=== PATIENT | female | born 1930 | race Caucasian/White ===

== ENCOUNTER 2017-05-12 19:45 | Inpatient (IN) | payer MEDICARE, BC ==
[~2017-05-12] VITALS: Ht 167.6 cm; Wt 69.5 kg
[~2017-05-12 19:45] MED LIST: ALTACE5 MG OR; ARIMIDEX1 MG OR; FOSAMAX10 MG OR; HYDROCHLOROT50 MG OR; KLOR-CON 1010 MEQ OR; LIPITOR20 MG OR; METOPROLOL50 MG OR; PERCOCET 5/325M1 TAB OR; PREDNISOLONE5 MG OR
--- NOTE | 2017-05-12 20:05 | NUR ---
PT TO ROOM 8 VIA EMS WITH C/O WEAKNESS STARTING THIS AM AFYER SHE HAD BEEN DIAGNOISED WITHN A SINUS INFECTION AND TAKING BACTRIM. PT. TEMP. 101.3.
[2017-05-12 20:20] LABS: HEMATOCRIT 35.4 % (37.0-47.0); HEMOGLOBIN 11.4 g/dl (12.0-16.0); IMMATURE GRANULOCYTES 0.4 % (0.0-1.0); MEAN CELL VOLUME 93.9 fL CALC (80.0-100.0); MEAN CORPUSCULAR HGB 30.2 pG CALC (26.0-32.0); MEAN CORPUSCULAR HGB CONC 32.2 g/L CALC (32.0-36.0); NEUT# 4.5 thou/uL (2.00-7.15); RED BLOOD COUNT 3.77 mill/uL (4.20-5.60); RED CELL DISTRI WIDTH 13.4 % (11.5-15.5)
[2017-05-12 20:38] LABS: ALBUMIN 3.9 g/dL (3.2-5.0); ALKALINE PHOSPHATASE 40 u/l (38-126); ANION GAP 18 (6-22 (CALC)); BILIRUBIN, TOTAL 0.3 mg/dL (0.0-1.4); BUN 22 mg/dL (8-23); BUN/CREATININE RATIO 19 (12-20 (CALC)); CARBON DIOXIDE 21 mmol/l (22-30); CHLORIDE 104 mmol/l (95-108); CREATININE 1.1 mg/dL (0.5-1.0); GFR 47 ML/MIN (>=60 (CALC)); GFR FOR AFR.AMER. 57 ML/MIN (>=60 (CALC)); POTASSIUM 4.2 mmol/l (3.5-5.1); SGPT/ALT 39 u/l (11-66); SODIUM 139 mmol/l (137-146); TOTAL PROTEIN 6.4 g/dL (6.3-8.2)
[2017-05-12 20:40] LABS: SGOT/AST 39 u/l (9-36)
[2017-05-12 20:50] LABS: ACT PARTIAL THROMBO TIME 25.4 SECONDS (20.0-32.5); MYOGLOBIN 168 ng/mL (0 - 62); PROTHROMBIN TIME 11.5 SECONDS (9.0-12.5)
--- NOTE | 2017-05-12 21:05 | NUR ---
PT. AT CT SCAN.
--- NOTE | 2017-05-12 21:34 | NUR ---
PO TYLENOL GIVEN FOR TEMP. 101.3 PER MD ORDER.
[2017-05-12 22:09] LABS: URINE BILIRUBIN - DIPSTICK NEGATIVE (NEGATIVE); URINE BLOOD DIPSTICK SMALL (NEGATIVE); URINE COLOR YELLOW; URINE GLUCOSE - DIPSTICK NEGATIVE (NEGATIVE); URINE KETONE NEGATIVE (NEGATIVE); URINE LEUK ESTERASE NEGATIVE (NEGATIVE); URINE NITRITE - DIPSTICK NEGATIVE (Negative); URINE PH 5.5 (4.5-8.0); URINE PROTEIN - DIPSTICK NEGATIVE (NEG-TRACE)
[2017-05-12 22:10] LABS: URINE CLARITY CLEAR
[2017-05-12 22:11] LABS: URINE SQUAMOUS EPITHELIAL CELL FEW EPI/hpf (0-FEW)
--- NOTE | 2017-05-12 22:36 | NUR ---
PT. TEMP. 99.9 AWARE.
--- NOTE | 2017-05-12 23:01 | NUR ---
IN ROOM TO DISCUSS CLINICAL FINDINGS, PT. AND FAMILY, VERBALIZED UNDERSTANDING.
--- NOTE | 2017-05-12 23:27 | NUR ---
POM ASA GIVEN PER MD ORDER.
--- NOTE | 2017-05-12 23:39 | NUR ---
PT. PLACED ON BED CHAPPELL VOIDING QS [place] URINE.
--- NOTE | 2017-05-12 23:55 | NUR ---
Admission Note Report Given to: FEDERICA SILVA Transported by: Wheelchair X Stretcher Transported with: X Nurse Transporter X Patent IV O2 X Functional Mental Disability Teacher
--- NOTE | 2017-05-13 | NUR ---
PT. TAKEN TO AL FLOOR VIA STRETCHER, NO C/O.
[2017-05-13 00:11] VITALS: BP 108/59
--- NOTE | 2017-05-13 00:30 | NUR ---
PATIENT ADMITTED FROM ER VIA STRETCHER WITH ER STAFF IN ATTENDANCE. PATIENT TRANSFERRED FROM STRETCHER TO BED. PATIENT IS AWAKE ALERT AND ORIENTEDX3. VS TAKEN AND RECORDED. AFEBRILE AT THIS TIME. HEP LOCK TO RIGHT FORARM INTACT-APPEARS HEALTHY AT THIS TIME. PATIENT ADMITTED FOR WEAKNESS. STATES THAT SHE LIVES WITH ELDERLY AND THIS AFTERNOON AFTER SITTING IN CHAIR WAS UNABLE TO GET OUT OF THE CHAIR EVEN WITH ASSIST OF HER SONS. 911 WAS CALLED AND SHE WAS BROUGHT TO THE ER. PATIENT STATES THAT SHE SAW DR. GLORIA IN THE OFFICE LAST SATURDAY AND HE GAVE HER RX FOR BACTRIM FOR SINUSITIS. PATIENT DENIES ANY ALLERGIES. PATIENT ALSO STATES THAT SHE IS HAVING SOME BURNING WITH URINATION AND THAT SHE RECENTLY HAS BEEN HAVING TROUBLE CONTROLLING HER URINE. STATES THAT SHE HAD BM YESTERDAY WITHOUT ANY DIFFICULTY. ORIENTED TO ROOM AND SURROUNDINGS. INSTRUCTED ON USE OF NURSE CALL LIGHT SYSTEM, PHONE, TV REMOTE. SAFETY PRECAUTIONS REVIEWED WITH PATIENT. CALL LIGHT IN REACH. WILL CONT TO MONITOR.
[2017-05-13 03:35] LABS: CHOLESTEROL HDL RATIO 1.7 (<4.4 (CALC))
[2017-05-13 04:06] VITALS: BP 94/48
[2017-05-13 04:27] LABS: TSH, 3RD GENERATION 0.48 uIU/mL (0.47 - 4.68)
--- NOTE | 2017-05-13 05:03 | NUR ---
PATIENT RESTING IN BED-STATES THAT SHE GOT UP TO THE BSC FOR BM BY HERSELF-REINFORCED TO THE PATIENT THAT SHE MUST CALL FOR ASSISTANCE ANNAMARIA SINCE WAS ADMITTED TO THE HOSPITAL FOR WEAKNESS-FALL PRECAUTIONS IN PLACE. VERBALIZES UNDERSTANDING OF THE STATED. PATIENT HAD MODERATE AMT OF BROWN SOFT STOOL AND VOIDING YELLOW URINE. CALL LIGHT IN REACH. WILL CONT TO MONITOR.
--- NOTE | 2017-05-13 06:00 | NUR ---
PATIENT APPEARS SLEEPING AT THIS TIME WITH EYES CLOSED. CALL LIGHT IN REACH. WILL CONT TO MONITOR.
--- NOTE | 2017-05-13 07:10 | NUR ---
REPORT RECEIVED FROM RICARDO STALLWORTH;PT APPEARS TO BE SLEEPING IN SUPINE POSITION;NO S/S OF DISTRESS NOTED;RESPIRATIONS EVEN AND UNLABORED ON RA;FALL PRECAUTIONS IN PLACE;WILL CONTINUE TO MONITOR
[2017-05-13 08:14] VITALS: BP 105/61
--- NOTE | 2017-05-13 08:15 | NUR ---
PT RESTING IN SEMI FOWLERS POSITION;A&O X3;VS OBTAINED AND ASSESSMENT COMPLETED;RESPIRATIONS EVEN AND UNLABORED ON RA,CLEAR/DIMINISHED LUNG SOUNDS NOTED;ABDOMEN SOFT ON PALPATION,X4 ACTIVE BOWEL SOUNDS;STRONG PEDAL PULSES;PT VOICES NO COMPLAINTS OF PAIN OR DISCOMFORTS;PAIN SCALE AND REPORTING EDUCATED;EMS #20G TO RIGHT FOREARM FLUSHED AND PATENT,SITE APPEARS HEALTHY;TELE MONITOR IN PLACE;SKIN INTACT;CURRENT TEMP 99.5,BLANKETS REMOVED AND AC LOWERED;PO FLUIDS ENCOURAGED;PT RE-EDUCATED TO CALL FOR ASSISTANCE IF NEEDED AND VERBALIZES UNDERSTANDING;FALL PRECAUTIONS IN PLACE WITH CALL LIGHT IN REACH;WILL CONTINUE TO MONITOR
[2017-05-13 10:17] LABS: HEMOGLOBIN 10.4 g/dl (12.0-16.0); IMMATURE GRANULOCYTES 0.3 % (0.0-1.0); MEAN CELL VOLUME 93.8 fL CALC (80.0-100.0); MEAN CORPUSCULAR HGB 30.5 pG CALC (26.0-32.0); MEAN CORPUSCULAR HGB CONC 32.5 g/L CALC (32.0-36.0); NEUT# 2.25 thou/uL (2.00-7.15); RED BLOOD COUNT 3.41 mill/uL (4.20-5.60); RED CELL DISTRI WIDTH 13.7 % (11.5-15.5)
[2017-05-13 10:48] LABS: ANION GAP 15 (6-22 (CALC)); BUN 18 mg/dL (8-23); BUN/CREATININE RATIO 18 (12-20 (CALC)); CARBON DIOXIDE 22 mmol/l (22-30); CHLORIDE 106 mmol/l (95-108); GFR 53 ML/MIN (>=60 (CALC)); GFR FOR AFR.AMER. > 60 ML/MIN (>=60 (CALC)); MAGNESIUM 1.8 mg/dL (1.6-2.3); POTASSIUM 3.8 mmol/l (3.5-5.1); SODIUM 139 mmol/l (137-146)
[2017-05-13 11:38] VITALS: BP 114/62
--- NOTE | 2017-05-13 12:45 | NUR ---
PT RESTING IN SEMI FOWLERS POSITION WITH FAMILY AT BEDSIDE;IV SITE PATENT INFUSING NS @ 80ML/HR;PT VOICES NO COMPLAINTS OF PAIN OR DISCOMFORTS;RESPIRATIONS EVEN AND UNLABORED ON RA;PT SWABBED FOR INFLUENZA AND PLACED ON DROPLET PRECAUTIONS;PT ENCOURAGED TO CALL FOR ASSISTANCE IF NEEDED;WILL CONTINUE TO MONITOR
[2017-05-13 14:34] LABS: INFLUENZA A POSITIVE (NONE DETECT); INFLUENZA B NONE DETECTED (NONE DETECT)
--- NOTE | 2017-05-13 16:06 | NUR ---
Spoke to pt about med education. Family was present. Pt is extremely adamant to leave. She states she "can't stay in the bed much longer" or she'll "never get out". Pt was cautioned to be very careful upon standing up or getting out of bed and to always let her nurse know.
[2017-05-13 16:39] VITALS: BP 108/65
--- NOTE | 2017-05-13 16:40 | NUR ---
PT RESTING IN SEMI FOWLERS POSITION WITH FAMILY AT BEDSIDE;PT DENIES ANY PAIN OR DISCOMFORTS;RESPIRATIONS EVEN AND UNLABORED ON RA;IV SITE PATENT;NEW IV SITE ATTEMPTED DUE TO EXPIRATION DATE OF EMS SITE BUT NO SUCCESS AT THIS TIME;CURRENT TEMP 100.8,BLANKETS REMOVED AND AC LOWERED;WILL CONTINUE TO MONITOR
--- NOTE | 2017-05-13 17:40 | NUR ---
EMS IV SITE REMOVED DUE TO EXPIRATION DATE AND OCCULSION WITH CATHETER INTACT;NEW #22G TO RIGHT WRIST STARTED BY AUSTYN;WILL CONTINUE TO MONITOR
[2017-05-13 19:00] VITALS: BP 104/66
--- NOTE | 2017-05-13 20:00 | NUR ---
PATIENT SITTING UP IN THE RECLINER AT THIS TIME-AWAK ALERT AND ORIENTEDX3. PATIENT ON DROPLET PRECAUTIONS FOR INFLUENZA A. PATIENT WITH NO COMPLAINTS AT THIS TIME. IV SITE TO RIGHT WRIST INTACT WITH IVF NS PATENT AND INFUSING AT 80CC/HR. SITE APPEARS HEALTHY AT THIS TIME. CONT TO RUN LOW GRADE TEMPS-ALREADY MEDICATED WITH TYLENOL. SAFETY PRECAUTIONS REINFORCED.CALL LIGHT IN REACH. WILL CONT TO MONITOR.
--- NOTE | 2017-05-13 23:15 | NUR ---
PATIENT RESTING IN BED. MEDICATED WITH TAMIFLU 30MG PO AND WITH ROCEPHIN 1GM IVPB ORDERED. NO COMPLAINTS AT THIS TIME. CALL LIGHT IN REACH. WILL CONT TO MONITOR.
[2017-05-14 00:02] VITALS: BP 124/67
--- NOTE | 2017-05-14 01:48 | NUR ---
APPEARS SLEEPING AT THIS TIME WITH EYES CLOSED. CALL LIGHT IN REACH. WILL CONT TO MONITOR.
--- NOTE | 2017-05-14 02:43 | NUR ---
PATIENT RESTING IN BED-C/O GENERALIZED ACHES AND PAINS-5/10 ON PAIN SCALE. MEDICATED WITH TYLENOL 650MG PO FOR PAIN. IVF NS PATENT AND INFUSING AT 80CC/HR. CALL LIGHT IN REACH. WILL CONT TO MONITOR.
[2017-05-14 04:00] VITALS: BP 117/62
--- NOTE | 2017-05-14 04:14 | NUR ---
PATIENT IS STILL AWAKE-HASN'T HAD MUCH SLEEP TONIGHT. PATIENT ASSISTED TO BSC TO VOID 300CC OF YELLOW URINE. ASSISTED BACK TO BED. IVF NS PATENT AND INFUSING AT 80CC/HR. SITE REMAINS HEALTHY. SAFETY PRECAUTIONS REINFORCED. CALL LIGHT IN REACH. WILL CONT TO MONITOR.
[2017-05-14 05:40] LABS: HEMATOCRIT 31.8 % (37.0-47.0); HEMOGLOBIN 10.5 g/dl (12.0-16.0); IMMATURE GRANULOCYTES 0.4 % (0.0-1.0); MEAN CELL VOLUME 92.4 fL CALC (80.0-100.0); MEAN CORPUSCULAR HGB 30.5 pG CALC (26.0-32.0); NEUT# 1.31 thou/uL (2.00-7.15); RED BLOOD COUNT 3.44 mill/uL (4.20-5.60); RED CELL DISTRI WIDTH 13.5 % (11.5-15.5)
[2017-05-14 06:17] LABS: ANION GAP 16 (6-22 (CALC)); BUN 13 mg/dL (8-23); BUN/CREATININE RATIO 16 (12-20 (CALC)); CARBON DIOXIDE 20 mmol/l (22-30); CHLORIDE 108 mmol/l (95-108); CREATININE 0.8 mg/dL (0.5-1.0); GFR > 60 ML/MIN (>=60 (CALC)); GFR FOR AFR.AMER. > 60 ML/MIN (>=60 (CALC)); MAGNESIUM 1.6 mg/dL (1.6-2.3); POTASSIUM 3.7 mmol/l (3.5-5.1); SODIUM 140 mmol/l (137-146)
--- NOTE | 2017-05-14 07:20 | NUR ---
REPORT RECEIVED FROM RICARDO STALLWORTH;PT APPEARS TO BE SLEEPING IN SUPINE POSITION;NO S/S OF DISTRESS NOTED;RESPIRATIONS EVEN AND UNLABORED ON RA;TELE MONITOR IN PLACE;DROPLET PRECAUTIONS;BED IN THE LOWEST POSITION;CALL LIGHT IN REACH;WILL CONTINUE TO MONITOR
--- NOTE | 2017-05-14 08:30 | NUR ---
PT RESTING IN SEMI FOWLERS POSITION WATCHING TV;VS OBTAINED AND ASSESSMENT COMPLETED;CURRENT TEMP 97.3;PT PLACED ON NEUTROPENIC PRECAUTIONS DUE TO DECREASED WBC @ 2.3;RESPIRATIONS EVEN AND UNLABORED ON RA;ABDOMEN SOFT ON PALPATION AND ACTIVE IN ALL 4 QUADRANTS;STRONG PEDAL PULSES;TELE MONITOR IN PLACE;#22G TO RIGHT WRIST INFUSING NS @ 80ML/HR WELL;PT VOICES NO COMPLAINTS OF PAIN OR DISCOMFORTS;ENCOURAGED TO EXPRESS CONCERNS;PO FLUIDS PROVIDED;FALL PRECAUTIONS IN PLACE WITH BED IN THE LOWEST POSITION;CALL LIGHT IN REACH;WILL CONTINUE TO MONITOR
[2017-05-14 08:31] VITALS: BP 123/87
--- NOTE | 2017-05-14 08:55 | NUR ---
Pt was resting in bed, breakfast just arrived, but pt stated she would participate in therapy. Pt moved supine to sit with supervision. Sit to and from stand with supervision and verbal cue for proper technique and safety. She ambulated approx 30' in room with RW and supervision and assist with IV pole. Gait without walker showed decrease step length and shuffled steps. She used BR to urinate and was able to move on and off toilet with supervision. Pt was set up for breakfast, call mendiola and phone in reach. Gait belt and non skid socks in place during treatment.
--- NOTE | 2017-05-14 11:45 | NUR ---
PT APPEARS TO BE SLEEPING IN SUPINE POSITION;NO S/S OF DISTRESS NOTED;RESPIRATIONS EVEN AND UNLABORED ON RA;TELE MONITOR IN PLACE;NEUTROPENIC PRECAUTIONS ENFORCED;CALL LIGHT WITHIN REACH;WILL CONTINUE TO MONITOR
[2017-05-14 12:02] VITALS: BP 132/64
[2017-05-14] MEDS ORDERED: Levaquin PO (12:33)
[2017-05-14] MEDS ORDERED: TAMIFLU30 MG PO (12:33)
--- NOTE | 2017-05-14 13:00 | NUR ---
ALL DISCHARGE INFORMATION GIVEN AND QUESTIONS ANSWERED;IV SITE REMOVED WITH CATHETER INTACT;PT IS AWAITING RIDE HOME FROM FAMILY MEMBER;WILL CONTINUE TO MONITOR
--- NOTE | 2017-05-14 13:17 | NUR ---
Discharge instructions given. Patient verbalizes understanding of same. Discharged in stable condition via Wheelchair to Home with family. All belongings sent with pt.
== END 2017-05-14 13:15 | disposition home or self-care (01) | DRG 194 ==
LOC: ED 19:45 → ED-I 21:00 → ED 23:14 → MS2 23:15
PROVIDERS: Emergency Medicine; Nurse Practitioner Family; ADMIT Internal Medicine; ATTEND Internal Medicine
DX: J10.1 Influenza due to other identified influenza virus with other respiratory manifestations (principal); N39.0 Urinary tract infection, site not specified; J32.0 Chronic maxillary sinusitis; E86.0 Dehydration; E78.5 Hyperlipidemia, unspecified; I10 Essential (primary) hypertension

== ENCOUNTER 2020-06-12 | Emergency (ER) | payer MEDICARE, BC ==
[~2020-06-12] MED LIST changes: +Levaquin PO; +TAMIFLU30 MG PO
[2020-06-12] MEDS ORDERED: TRAMADOL HCL50 MG PO (19:21)
[2020-06-12 20:26] LABS: HEMATOCRIT 37.7 % (37.0-47.0); HEMOGLOBIN 11.7 g/dl (12.0-16.0); IMMATURE GRANULOCYTES 0.5 % (0.0-5.0); MEAN CELL VOLUME 92.6 fL CALC (80.0-100.0); MEAN CORPUSCULAR HGB 28.7 pG CALC (26.0-32.0); NEUT# 6.64 thou/uL (2.00-7.15); RED BLOOD COUNT 4.07 mill/uL (4.20-5.60); RED CELL DISTRI WIDTH 14.2 % (11.5-15.5)
[2020-06-12 20:32] LABS: ALBUMIN 4.4 g/dL (3.2-5.0); ALKALINE PHOSPHATASE 43 u/l (38-126); ANION GAP 11 (6-22 (CALC)); BILIRUBIN, TOTAL 0.6 mg/dL (0.0-1.4); BUN 22 mg/dL (8-23); BUN/CREATININE RATIO 24 (12-20 (CALC)); CARBON DIOXIDE 28 mmol/l (22-30); CHLORIDE 103 mmol/l (95-108); CREATININE 0.9 mg/dL (0.5-1.0); GFR 59 ML/MIN (>=60 (CALC)); GFR FOR AFR.AMER. > 60 ML/MIN (>=60 (CALC)); POTASSIUM 4.2 mmol/l (3.5-5.1); SGOT/AST 36 u/l (9-36); SODIUM 138 mmol/l (137-146); TOTAL PROTEIN 7.6 g/dL (6.3-8.2)
[2020-06-12 20:37] LABS: ACT PARTIAL THROMBO TIME 21.6 SECONDS (20.0-32.5); INTERNATIONAL NORMALIZED RATIO 1.1 RATIO (0.7-1.3); PROTHROMBIN TIME 10.9 SECONDS (9.0-12.5)
[2021-01-27] MEDS ORDERED: NAPROXEN500 MG PO (20:34)
== END 2020-06-12 22:29 ==
DX: S72.141A Displaced intertrochanteric fracture of right femur, initial encounter for closed fracture (principal); I10 Essential (primary) hypertension; E78.5 Hyperlipidemia, unspecified; E66.9 Obesity, unspecified; W18.30XA Fall on same level, unspecified, initial encounter; Y92.008 Other place in unspecified non-institutional (private) residence as the place of occurrence of the external cause; Z20.822 Contact with and (suspected) exposure to COVID-19

== ENCOUNTER → 2020-10-22 | Outpatient (REF) | payer MEDICARE, BC ==
[~2020-10-22] MED LIST changes: +TRAMADOL HCL50 MG PO
[2020-10-23 00:02] LABS: URINE BILIRUBIN - DIPSTICK NEGATIVE (NEGATIVE); URINE BLOOD DIPSTICK TRACE-INTACT (NEGATIVE); URINE COLOR YELLOW; URINE GLUCOSE - DIPSTICK NEGATIVE (NEGATIVE); URINE KETONE NEGATIVE (NEGATIVE); URINE PH 6.5 (4.5-8.0); URINE PROTEIN - DIPSTICK NEGATIVE (NEG-TRACE)
[2020-10-23 00:03] LABS: URINE LEUK ESTERASE MODERATE (NEGATIVE); URINE NITRITE - DIPSTICK NEGATIVE (Negative)
[2020-10-23 00:13] LABS: URINE BACTERIA MANY hpf; URINE SQUAMOUS EPITHELIAL CELL MODERATE EPI/hpf (0-FEW)
== END | disposition home or self-care (01) ==
LOC: LABSPEC 23:36
PROVIDERS: ATTEND Internal Medicine
DX: R50.9 Fever, unspecified (principal); B96.20 Unspecified Escherichia coli [E. coli] as the cause of diseases classified elsewhere